=== PATIENT | male | born 1990 | race Caucasian/White ===

== ENCOUNTER 2017-02-04 23:26 | Inpatient (IN) | payer BC ==
[2017-02-04 23:45] VITALS: BMI 22.6
--- NOTE | 2017-02-04 23:52 | HP ---
COWS - Scale Resting Pulse: 0= [place] 80 or Below Sweatin= Chills/Flushing Restless Observation: 3= Extraneous Movement Pupil Size: 1= Pupils >than Normal Bone or Joint Aches: 2= Severe Diffuse Aches Runny Nose/ Eye Tearin= Runny Nose/Eyes GI Upset > 30mins: 3= Vomiting/Diarrhea Tremor Observation: 1= Tremor [place], Not Seen Yawning Observation: 1= 1-2x During Session Anxiety or Irritability: 1=Feels Anxious/Irritable Goose Flesh Skin: 3=Piloerection COWS Score: 18 CIWA Score - CIWA Score Nausea/Vomitin-Mild Nausea/No Vomiting Muscle Tremors: 2 Anxiety: 3 Agitation: 1-Slight > Activity Paroxysmal Sweats: 2 Orientation: 1-Uncertain about Date Tacttile Disturbances: 2-Mild Itch/Numbness/Burn Auditory Disturbances: 0-None Visual Disturbances: 1-Very Mild Sensitivity Headache: 1-Very Mild CIWA-Ar Total Score: 14 Admission ROS S - HPI Chief Complaint: WITHDRAWAL SYMPTOMS Allergies/Adverse Reactions: Allergies Allergy/AdvReac Type Severity Reaction Status Date / Time No Known Allergies Allergy Verified 02/04/17 23:48 History of Present Illness: 26 Y.O. 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 HE REPORTS HE COMPLETED DETOX AT [facility] AND WAS ADMINISTRATIVELY DISCHARGED FROM [facility]. THIS IS HIS FIRST ADMISSION TO [facility]. Exam Limitations: No Limitations - Ebola screening Have you traveled outside of the country in the last 21 days: No Have you had contact with anyone from an Ebola affected area: No Have you been sick,other than usual withdrawal symptoms: No Do you have a fever: No - Review of Systems Constitutional: Chills, Loss of Appetite, Night Sweats, Changes in sleep, Unintentional Wgt. Loss EENT: reports: Tearing, Nose Congestion Respiratory: reports: Cough, Shortness of Breath Cardiac: reports: No Symptoms Reported GI: reports: Constipated : reports: Other (HESISTANCY) Musculoskeletal: reports: Back Pain Neuro: reports: Tingling Endocrine: reports: No Symptoms Reported Hematology: reports: No Symptoms Reported Psychiatric: reports: Orientated x3, Depressed Other Systems: Reviewed and Negative Patient History - Patient Medical History Hx Anemia: No Hx Asthma: No Hx Chronic Obstructive Pulmonary Disease (COPD): No Hx Cancer: No Hx Cardiac Disorders: No Hx Congestive Heart Failure: No Hx Hypertension: No Hx Hypercholesterolemia: Yes Hx Pacemaker: No HX Cerebrovascular Accident: No Hx Seizures: No Hx Dementia: No Hx Diabetes: No Hx Gastrointestinal Disorders: No Hx Liver Disease: No Hx Genitourinary Disorders: No Hx Sexually Transmitted Disorders: No Hx Renal Disease (ESRD): No Hx Thyroid Disease: No Hx Human Immunodeficiency Virus (HIV): No Hx Hepatitis C: No Hx Depression: Yes Hx Suicide Attempt: No Hx Bipolar Disorder: No Hx Schizophrenia: No - Patient Surgical History Past Surgical History: Yes Other Surgical History: Tonsillectomy Anesthesia Reaction: Yes - PPD History Previous Implant?: Yes Documented Results: Negative w/o proof Implanted On Prior R Admission?: No PPD to be Administered?: Yes - Reproductive History Patient is a Female of Child Bearing Age (11 -55 yrs old): No - Smoking Cessation Smoking history: Current every day smoker Have you smoked in the past 12 months: Yes Aproximately how many cigarettes per day: 20 Hx Chewing Tobacco Use: Yes Initiated information on smoking cessation: Yes 'Breaking Loose' booklet given: 02/04/17 - Substance & Tx. History Hx Alcohol Use: No Hx Substance Use: Yes Substance Use Type: Heroin, Tranquilizers Hx Substance Use Treatment: Yes - Substances Abused Heroin Route: Inhalation Frequency: Daily Amount used: 15-20 BAG Age of first use: 16 Date of Last Use: 02/05/17 Alprazolam (Xanax) Route: Oral Frequency: Daily Amount used: 4MG Age of first use: 16 Date of Last Use: 02/05/17 Family Disease History - Family Disease History Family Disease History: Respiratory: Brother (OPIOID DEPENDENCE ), Other: Brother Admission Physical Exam [facility] - Vital Signs Vital Signs: Vital Signs - 24 hr 02/04/17 23:42 Temperature 96.0 F L Pulse Rate 76 Respiratory 18 Rate Blood Pressure 124/73 - Physical General Appearance: Yes: Irritable, Anxious HEENTM: Yes: Normal ENT Inspection, Normocephalic, Normal Voice Respiratory: Yes: Lungs Clear, Normal Breath Sounds, No Respiratory Distress, No Accessory Muscle Use Neck: Yes: No masses,lesions,Nodules, Trachea in good position Breast: Yes: Breast Exam Deferred Cardiology: Yes: Regular Rhythm, Regular Rate Abdominal: Yes: Flat, Soft Genitourinary: Yes: Other (HESITANCY) Back: Yes: Normal Inspection Musculoskeletal: Yes: Back pain Extremities: Yes: Normal Inspection, Normal Range of Motion, Non-Tender Neurological: Yes: Fully Oriented, Alert, Normal Mood/Affect, Normal Response Integumentary: Yes: Normal Color, Dry, Warm Lymphatic: Yes: Within Normal Limits - Diagnostic (1) Nicotine dependence Current Visit: Yes Status: Chronic (2) Opioid dependence with withdrawal Current Visit: Yes Status: Chronic (3) Sedative, hypnotic or anxiolytic dependence with withdrawal, uncomplicated Current Visit: Yes Status: Chronic Cleared for Admission S - Detox or Rehab [facility] Level of Care: Medically Managed Detox Regimen/Protocol: Methadone/Valium S Breath Alcohol Content Breath Alcohol Content: 0 Urine Drug Screen - Test Device Lot Number: [id number] Expiration Date: 09/03/18 - Control Is Test Valid: Yes - Results Drug Screen Negative: No Urine Drug Screen Results: THC-Marijuana, OPI-Opiates, BAR-Barbiturates, BZO- Benzodiazepines
[2017-02-05] MEDS ORDERED: MENTHOL/PHENOL 1 EACH UD MM PRN (02:16)
[2017-02-05] MEDS ORDERED: MAG HYDROX/AL HYDROX/SIMETH 30 ML UNIT-DOSE CUP PO PRN (02:16)
[2017-02-05] MEDS ORDERED: P-EPHED 60MG/TRIPROLIDI 2.5MG TABLET PO PRN (02:16)
[2017-02-05] MEDS ORDERED: diazePAM 5 MG TABLET PO ONE (02:16)
[2017-02-05] MEDS ORDERED: ACETAMINOPHEN 325 MG TABLET (FP) PO PRN (02:16)
[2017-02-05] MEDS ORDERED: MAGNESIUM HYDROX 2400MG/30ML ORAL SUSPENSION 30 ML CUP PO PRN (02:16)
[2017-02-05] MEDS ORDERED: NICOTINE POLACRILEX 4 MG GUM BC PRN (02:16)
[2017-02-05] MEDS ORDERED: MAGNESIUM CITRATE 300 ML BOTTLE PO PRN (02:16)
[2017-02-05] MEDS ORDERED: IBUPROFEN 400 MG TABLET (FP) PO PRN (02:16)
[2017-02-05] MEDS ORDERED: hydrOXYzine PAMOATE 50 MG CAPSULE (FP) PO PRN (02:16)
[2017-02-05] MEDS ORDERED: METHADONE HCL 10 MG TABLET (FOR DETOX USE ONLY) PO ONE ×3 (02:16→23:00)
[2017-02-05] MEDS ORDERED: guaiFENesin/D-METHORPHAN HB 10 ML UNIT-DOSE CUPS PO PRN (02:16)
[2017-02-05] MEDS: diazePAM 5 MG TABLET PO SCH ×3 (06:03→22:36)
--- NOTE | 2017-02-05 10:15 | CONSULT ---
[facility] Psychiatric Consult - Data Date of interview: 02/05/17 Admission source: [facility] Identifying data: This is 26 years old male with no psychiatric hospitalization history intoxicated with: Opioids, Xanax and Nicotine Substance Abuse History: moking Cessation. Smoking history: Current every day smoker. Have you smoked in the past 12 months: Yes. Aproximately how many cigarettes per day: 20. Hx Chewing Tobacco Use: Yes. Initiated information on smoking cessation: Yes. 'Breaking Loose' booklet given: 02/04/17. - Substance & Tx. History. Hx Alcohol Use: No. Hx Substance Use: Yes. Substance Use Type : Heroin, Tranquilizers. Hx Substance Use Treatment: Yes. - Substances Abused. Heroin. Route: Inhalation. Frequency: Daily. Amount used: 15-20 BAG. Age of first use: 16. Date of Last Use: 02/05/17. Alprazolam (Xanax) . Route: Oral. Frequency: Daily. Amount used: 4MG. Age of first use: 16. Date of Last Use: 02/05/17 Medical History: Denies any significant medical issues, Psychiatric History: Patient reports unclear psychiatric admission on ore then 5 years ago, reports no medications taking prior to admission Physical/Sexual Abuse/Trauma History: Denies Additional Comment: Observation. Detox Unit Care Protocol Mental Status Exam - Mental Status Exam Alert and Oriented to: Person Cognitive Function: Fair Patient Appearance: Unkempt Mood: Sad Affect: Flat Patient Behavior: Sedated Speech Pattern: Delayed Voice Loudness: Mildly Soft/Quiet Thought Process: Circumstantial Thought Disorder: Being Controlled Hallucinations: Denies Suicidal Ideation: Denies Homicidal Ideation: Denies Insight/Judgement: Fair Appetite: Fair Muscle strength/Tone: Mild Hypotonicity Gait/Station: Shuffling Additional Comments: Observation. Detox Unit Care Protocol Psychiatric Findings - Problem List ([place] 1, 2,3) (1) Nicotine dependence Current Visit: Yes Status: Chronic (2) Opioid dependence with withdrawal Current Visit: Yes Status: Chronic (3) Sedative, hypnotic or anxiolytic dependence with withdrawal, uncomplicated Current Visit: Yes Status: Chronic - Initial Treatment Plan Initial Treatment Plan: Observation. Detox Unit Care Protocol
[2017-02-05 10:16] LABS: MCH 34.7 pg (25.7-33.7); MEAN CELL VOLUME 100.2 fl (80-96); MEAN PLT VOLUME 8.1 fl (7.5-11.1); PLATELET COUNT 149 K/MM3 (134-434); RDW 12.8 % (11.9-15.9); WHITE BLOOD COUNT 6.1 K/mm3 (4.0-10.0)
[2017-02-05 10:34] LABS: MCHC 100.2 g/dl (32.0-35.9)
[2017-02-05] MEDS: NICOTINE 21 MG/24 HOURS TOPICAL PATCH TD SCH (10:47)
[2017-02-05] MEDS: PRENATAL VITAMINS W/ FOLIC ACID TABLET (FP) PO SCH (10:47)
[2017-02-05] MEDS: diazePAM 5 MG TABLET PO PRN ×2 (10:48→20:18)
[2017-02-05 10:53] LABS: ALBUMIN 3.6 g/dl (3.4-5.0); ALK PHOS 54 U/L (45-117); ANION GAP 8 (8-16); BILIRUBIN,TOTAL 0.3 mg/dL (0.2-1.0); CALCIUM 8.3 mg/dL (8.5-10.1); CO2 32 mmol/L (21-32); COCKROFT - GAULT 139.66; CREATININE 0.9 mg/dL (0.7-1.3); GLUCOSE,RANDOM 97 mg/dL (74-106); SGOT/AST 14 U/L (15-37); SGPT/ALT 22 U/L (12-78); TOT PROT 6.1 g/dl (6.4-8.2)
--- NOTE | 2017-02-05 11:00 | PN ---
[facility] Progress Note Note: PT WAS ADMITTED EARLIER TODAY. ALERT O X 3. INTERMITTENT SLEEP AND BENADRYL NOT EFFECTIVE. STATES TAKES TRAZODONE FOR SLEEP. TO F/U WITH PSYCH CONSULT TODAY. Vital Signs Temperature 96.0 F L 02/05/17 09:34 Pulse Rate 70 02/05/17 09:34 Respiratory Rate 18 02/05/17 09:34 Blood Pressure 111/67 02/05/17 09:34 O2 Sat by Pulse Oximetry (%) Laboratory Last Values WBC 6.1 K/mm3 (4.0-10.0) 02/05/17 07:00 RBC 3.64 M/mm3 (4.00-5.60) L 02/05/17 07:00 Hgb 12.6 GM/dL (11.7-16.9) 02/05/17 07:00 Hct 36.4 % (35.4-49) 02/05/17 07:00 MCV 100.2 fl (80-96) H 02/05/17 07:00 MCHC 100.2 g/dl (32.0-35.9) H 02/05/17 07:00 RDW 12.8 % (11.9-15.9) 02/05/17 07:00 Plt Count 149 K/MM3 (134-434) 02/05/17 07:00 MPV 8.1 fl (7.5-11.1) 02/05/17 07:00 CONTINUE DETOX
--- NOTE | 2017-02-05 11:06 | PN ---
[facility] CIWA - CIWA Score Nausea/Vomitin-No Nausea/No Vomiting Muscle Tremors: 4-Moderate,w/Arms Extend Anxiety: 4-Mod. Anxious/Guarded Agitation: 4-Moderately Restless Paroxysmal Sweats: 1-Minimal Palms Moist Orientation: 0-Oriented Tacttile Disturbances: 3-Moderate Itch/Numb/Burn Auditory Disturbances: 0-None Visual Disturbances: 0-None Headache: 0-None Present CIWA-Ar Total Score: 16 [facility] COWS - Scale Resting Pulse: 0= [place] 80 or Below Sweatin= Chills/Flushing Restless Observation: 3= Extraneous Movement Pupil Size: 2= Moderately Dilated Bone or Joint Aches: 4=Acute Joint/Muscle Pain Runny Nose/ Eye Tearin= Nasal Congestion GI Upset > 30mins: 1= Stomach Cramp Tremor Observation of Outstretched Hands: 2= Slight Tremor Visible Yawning Observation: 2= >3x During Session Anxiety or Irritability: 2=Irritable/Anxious Goose Flesh Skin: 0=Smooth Skin COWS Score: 18 S Progress Note (SOAP) Subjective: ANXIETY,SWEATS,INTERMITTENT SLEEP-BENADRYL NOT EFFECTIVE. STATES TAKES TRAZODONE FOR SLEEP. TO FOLLOW UP WITH PSYCH CONSULT TODAY. Objective: 02/05/17 11:05 Vital Signs Temperature 96.0 F L 02/05/17 09:34 Pulse Rate 70 02/05/17 09:34 Respiratory Rate 18 02/05/17 09:34 Blood Pressure 111/67 02/05/17 09:34 O2 Sat by Pulse Oximetry (%) Laboratory Last Values WBC 6.1 K/mm3 (4.0-10.0) 02/05/17 07:00 RBC 3.64 M/mm3 (4.00-5.60) L 02/05/17 07:00 Hgb 12.6 GM/dL (11.7-16.9) 02/05/17 07:00 Hct 36.4 % (35.4-49) 02/05/17 07:00 MCV 100.2 fl (80-96) H 02/05/17 07:00 MCHC 100.2 g/dl (32.0-35.9) H 02/05/17 07:00 RDW 12.8 % (11.9-15.9) 02/05/17 07:00 Plt Count 149 K/MM3 (134-434) 02/05/17 07:00 MPV 8.1 fl (7.5-11.1) 02/05/17 07:00 OTHER LABS PENDING. Assessment: 02/05/17 11:05 WITHDRAWAL SX Plan: CONTINUE DETOX
[2017-02-05 12:32] LABS: HIV 1 & 2 AB NEGATIVE; HIV 1 AGp24 NEGATIVE
--- NOTE | 2017-02-05 17:36 | EKG ---
Test Reason : Blood Pressure : / mmHG Vent. Rate : 068 BPM Atrial Rate : 068 BPM P-R Int : 150 ms QRS Dur : 094 ms QT Int : 380 ms P-R-T Axes : 054 066 049 degrees QTc Int : 404 ms NORMAL SINUS RHYTHM POSSIBLE LEFT ATRIAL ENLARGEMENT BORDERLINE ECG NO PREVIOUS ECGS AVAILABLE Confirmed by NATHALY HELTON, GRACIELA ([id number]) on 02/05/2017 5:35:37 PM Referred By: Confirmed By:GRACIELA ANDERSEN MD
[2017-02-05] MEDS: THIAMINE HCL 100 MG TABLET (FP) PO SCH (22:36)
[2017-02-05] MEDS: diphenhydrAMINE HCL 50 MG CAPSULE PO PRN (22:36)
[2017-02-06] MEDS: diazePAM 5 MG TABLET PO SCH ×3 (06:16→22:22)
[2017-02-06] MEDS ORDERED: METHADONE HCL 10 MG TABLET (FOR DETOX USE ONLY) PO SCH (10:00)
--- NOTE | 2017-02-06 10:05 | PN ---
[facility] Progress Note Note: Psychiatry Attending's note : Asked to enter orders for trazodone. Complaint : insomnia. Past history of treatment with trazodone. Mr Diehl was already seen by Dr Disla on 02/05/17. Consult note is appreciated. Met briefly with the patient. He confirmed history of favorable response to trazodone. No previous report of adverse effects.Chronic insomnia reported. Patient is eager to resume the medication. Intervention : Trazodone 50 mg po hs.Ordered. Patient made aware of potential for priapism. He agrees with this careplan.
[2017-02-06] MEDS: diazePAM 5 MG TABLET PO PRN (10:23)
[2017-02-06] MEDS: PRENATAL VITAMINS W/ FOLIC ACID TABLET (FP) PO SCH (10:23)
[2017-02-06] MEDS: NICOTINE 21 MG/24 HOURS TOPICAL PATCH TD SCH (10:24)
--- NOTE | 2017-02-06 13:42 | PN ---
[facility] CIWA - CIWA Score Nausea/Vomitin-Mild Nausea/No Vomiting Muscle Tremors: 3 Anxiety: 4-Mod. Anxious/Guarded Agitation: 4-Moderately Restless Paroxysmal Sweats: 3 Orientation: 0-Oriented Tacttile Disturbances: 0-None Auditory Disturbances: 0-None Visual Disturbances: 0-None Headache: 0-None Present CIWA-Ar Total Score: 15 S COWS - Scale Resting Pulse: 0= [place] 80 or Below Sweatin=Flushed/Facial Moisture Restless Observation: 1= Difficult to Sit Still Pupil Size: 0= Normal to Room Light Bone or Joint Aches: 1= Mild Discomfort Runny Nose/ Eye Tearin= Runny Nose/Eyes GI Upset > 30mins: 2= Nausea/Diarrhea Tremor Observation of Outstretched Hands: 2= Slight Tremor Visible Yawning Observation: 1= 1-2x During Session Anxiety or Irritability: 2=Irritable/Anxious Goose Flesh Skin: 0=Smooth Skin COWS Score: 13 S Progress Note (SOAP) Subjective: Anxiety,tremors,sweating,interrupted sleep,restless,muscle aches Objective: 02/06/17 13:41 Vital Signs - 8 hr 02/06/17 02/06/17 06:39 10:41 Temperature 95.8 F L 97.0 F L Pulse Rate 66 68 Respiratory 18 16 Rate Blood Pressure 108/70 115/70 Laboratory Tests 02/05/17 02/05/17 02/05/17 07:00 07:00 07:00 WBC 6.1 RBC 3.64 L Hgb 12.6 Hct 36.4 MCV 100.2 H MCHC 100.2 H RDW 12.8 Plt Count 149 MPV 8.1 Sodium 141 Potassium 3.6 Chloride 101 Carbon Dioxide 32 Anion Gap 8 BUN 14 Creatinine 0.9 Creat Clearance w eGFR > 60 Random Glucose 97 Calcium 8.3 L Total Bilirubin 0.3 AST 14 L ALT 22 Alkaline Phosphatase 54 Total Protein 6.1 L Albumin 3.6 RPR Titer HIV 1&2 Antibody Screen Negative HIV P24 Antigen Negative 02/05/17 07:00 WBC RBC Hgb Hct MCV MCHC RDW Plt Count MPV Sodium Potassium Chloride Carbon Dioxide Anion Gap BUN Creatinine Creat Clearance w eGFR Random Glucose Calcium Total Bilirubin AST ALT Alkaline Phosphatase Total Protein Albumin RPR Titer Nonreactive HIV 1&2 Antibody Screen HIV P24 Antigen labs noted Assessment: 02/06/17 13:41 Withdrawal sx. Plan: Continue detox
[2017-02-06] MEDS: THIAMINE HCL 100 MG TABLET (FP) PO SCH (22:22)
[2017-02-06] MEDS: traZODone HCL 50 MG TABLET (FP) PO SCH (22:22)
[2017-02-07] MEDS: diazePAM 5 MG TABLET PO PRN ×2 (06:12→20:57)
[2017-02-07] MEDS: NICOTINE 21 MG/24 HOURS TOPICAL PATCH TD SCH (10:18)
[2017-02-07] MEDS: METHADONE HCL 5 MG TABLET (FOR DETOX USE ONLY) PO SCH (10:18)
[2017-02-07] MEDS: PRENATAL VITAMINS W/ FOLIC ACID TABLET (FP) PO SCH (10:18)
[2017-02-07] MEDS: diazePAM 5 MG TABLET PO SCH ×2 (10:18→22:24)
--- NOTE | 2017-02-07 17:38 | PN ---
S Progress Note (SOAP) Subjective: Tremors, Interrupted sleep, Sweating, Back Ache. Objective: PT. A & O X 3. 02/07/17 17:36 Vital Signs Temperature 96.4 F L 02/07/17 15:33 Pulse Rate 84 02/07/17 15:33 Respiratory Rate 20 02/07/17 15:33 Blood Pressure 106/69 02/07/17 15:33 O2 Sat by Pulse Oximetry (%) Laboratory Last Values WBC 6.1 K/mm3 (4.0-10.0) 02/05/17 07:00 RBC 3.64 M/mm3 (4.00-5.60) L 02/05/17 07:00 Hgb 12.6 GM/dL (11.7-16.9) 02/05/17 07:00 Hct 36.4 % (35.4-49) 02/05/17 07:00 MCV 100.2 fl (80-96) H 02/05/17 07:00 MCHC 100.2 g/dl (32.0-35.9) H 02/05/17 07:00 RDW 12.8 % (11.9-15.9) 02/05/17 07:00 Plt Count 149 K/MM3 (134-434) 02/05/17 07:00 MPV 8.1 fl (7.5-11.1) 02/05/17 07:00 Sodium 141 mmol/L (136-145) 02/05/17 07:00 Potassium 3.6 mmol/L (3.5-5.1) 02/05/17 07:00 Chloride 101 mmol/L (98-107) 02/05/17 07:00 Carbon Dioxide 32 mmol/L (21-32) 02/05/17 07:00 Anion Gap 8 (8-16) 02/05/17 07:00 BUN 14 mg/dL (7-18) 02/05/17 07:00 Creatinine 0.9 mg/dL (0.7-1.3) 02/05/17 07:00 Creat Clearance w eGFR > 60 (>60) 02/05/17 07:00 Random Glucose 97 mg/dL (74-106) 02/05/17 07:00 Calcium 8.3 mg/dL (8.5-10.1) L 02/05/17 07:00 Total Bilirubin 0.3 mg/dL (0.2-1.0) 02/05/17 07:00 AST 14 U/L (15-37) L 02/05/17 07:00 ALT 22 U/L (12-78) 02/05/17 07:00 Alkaline Phosphatase 54 U/L (45-117) 02/05/17 07:00 Total Protein 6.1 g/dl (6.4-8.2) L 02/05/17 07:00 Albumin 3.6 g/dl (3.4-5.0) 02/05/17 07:00 RPR Titer Nonreactive (NONREACTIVE) 02/05/17 07:00 Hepatitis C Antibody <0.1 s/co ratio (0.0-0.9) 02/05/17 07:00 HIV 1&2 Antibody Screen Negative 02/05/17 07:00 HIV P24 Antigen Negative 02/05/17 07:00 LABS NOTED. Assessment: 02/07/17 17:38 WITHDRAWAL SYMPTOMS. Plan: CONTINUE DETOX. ADVISED PATIENT TO FOLLOW-UP WITH [facility] / REHAB MEDICAL PROVIDER AFTER DISCHARGE FROM DETOX FOR GENERAL MEDICAL ASSESSMENT AND FOR ABNORMAL ADMISSION LAB VALUES.
[2017-02-07] MEDS: traZODone HCL 50 MG TABLET (FP) PO SCH (22:24)
[2017-02-07] MEDS: THIAMINE HCL 100 MG TABLET (FP) PO SCH (22:24)
[2017-02-08] MEDS: METHADONE HCL 5 MG TABLET (FOR DETOX USE ONLY) PO SCH (10:11)
[2017-02-08] MEDS: PRENATAL VITAMINS W/ FOLIC ACID TABLET (FP) PO SCH (10:11)
[2017-02-08] MEDS: NICOTINE 21 MG/24 HOURS TOPICAL PATCH TD SCH (10:11)
[2017-02-08] MEDS: diazePAM 5 MG TABLET PO SCH ×2 (10:11→22:19)
[2017-02-08 10:24] LABS: URINE APPEARANCE CLEAR; URINE BILIRUBIN NEGATIVE (NEGATIVE); URINE BLOOD NEGATIVE (NEGATIVE); URINE COLOR LTYELLOW; URINE GLUCOSE (UA) NEGATIVE (NEGATIVE); URINE KETONE NEGATIVE (NEGATIVE); URINE LEUK ESTERASE NEGATIVE (NEGATIVE); URINE NITRITE NEGATIVE (NEGATIVE); URINE PROTEIN NEGATIVE (NEGATIVE); URINE UROBILINOGEN NEGATIVE E.U./dl (0.2-1.0)
--- NOTE | 2017-02-08 15:26 | PN ---
[facility] Progress Note (SOAP) Subjective: Sweating, fatigue, interrupted sleep, anxious Objective: 02/08/17 15:24 Last Vital Signs Temp Pulse Resp BP Pulse Ox 96.8 F L 84 18 98/63 02/08/17 13:40 02/08/17 13:40 02/08/17 13:40 02/08/17 13:40 Laboratory Tests 02/05/17 02/05/17 02/05/17 07:00 07:00 07:00 WBC 6.1 RBC 3.64 L Hgb 12.6 Hct 36.4 MCV 100.2 H MCHC 100.2 H RDW 12.8 Plt Count 149 MPV 8.1 Sodium Potassium Chloride Carbon Dioxide Anion Gap BUN Creatinine Creat Clearance w eGFR Random Glucose Calcium Total Bilirubin AST ALT Alkaline Phosphatase Total Protein Albumin Urine Color Urine Appearance Urine pH Urine Protein Urine Glucose (UA) Urine Ketones Urine Blood Urine Nitrite Urine Bilirubin Urine Urobilinogen Ur Leukocyte Esterase RPR Titer Hepatitis C Antibody <0.1 HIV 1&2 Antibody Screen Negative HIV P24 Antigen Negative 02/05/17 02/05/17 02/07/17 07:00 07:00 08:40 WBC RBC Hgb Hct MCV MCHC RDW Plt Count MPV Sodium 141 Potassium 3.6 Chloride 101 Carbon Dioxide 32 Anion Gap 8 BUN 14 Creatinine 0.9 Creat Clearance w eGFR > 60 Random Glucose 97 Calcium 8.3 L Total Bilirubin 0.3 AST 14 L ALT 22 Alkaline Phosphatase 54 Total Protein 6.1 L Albumin 3.6 Urine Color Ltyellow Urine Appearance Clear Urine pH 5.0 Urine Protein Negative Urine Glucose (UA) Negative Urine Ketones Negative Urine Blood Negative Urine Nitrite Negative Urine Bilirubin Negative Urine Urobilinogen Negative Ur Leukocyte Esterase Negative RPR Titer Nonreactive Hepatitis C Antibody HIV 1&2 Antibody Screen HIV P24 Antigen Labs noted Assessment: 02/08/17 15:25 Withdrawal symptoms Plan: Continue detox
[2017-02-08] MEDS: traZODone HCL 50 MG TABLET (FP) PO SCH (22:19)
[2017-02-08] MEDS: THIAMINE HCL 100 MG TABLET (FP) PO SCH (22:19)
[2017-02-09] MEDS ORDERED: METHADONE HCL 10 MG TABLET (FOR DETOX USE ONLY) PO SCH (10:00)
[2017-02-09] MEDS ORDERED: diazePAM 5 MG TABLET PO SCH (10:00)
[2017-02-09] MEDS: PRENATAL VITAMINS W/ FOLIC ACID TABLET (FP) PO SCH (10:19)
[2017-02-09] MEDS: NICOTINE 21 MG/24 HOURS TOPICAL PATCH TD SCH (10:20)
--- NOTE | 2017-02-09 15:09 | PN ---
[facility] Progress Note (SOAP) Subjective: Sweating,interrupted sleep,restless Objective: 02/09/17 15:09 Vital Signs - 8 hr 02/09/17 02/09/17 09:33 09:34 Temperature 97.2 F L 97.2 F L Pulse Rate 73 73 Respiratory 18 18 Rate Blood Pressure 106/72 106/72 Laboratory Last Values WBC 6.1 K/mm3 (4.0-10.0) 02/05/17 07:00 RBC 3.64 M/mm3 (4.00-5.60) L 02/05/17 07:00 Hgb 12.6 GM/dL (11.7-16.9) 02/05/17 07:00 Hct 36.4 % (35.4-49) 02/05/17 07:00 MCV 100.2 fl (80-96) H 02/05/17 07:00 MCHC 100.2 g/dl (32.0-35.9) H 02/05/17 07:00 RDW 12.8 % (11.9-15.9) 02/05/17 07:00 Plt Count 149 K/MM3 (134-434) 02/05/17 07:00 MPV 8.1 fl (7.5-11.1) 02/05/17 07:00 Sodium 141 mmol/L (136-145) 02/05/17 07:00 Potassium 3.6 mmol/L (3.5-5.1) 02/05/17 07:00 Chloride 101 mmol/L (98-107) 02/05/17 07:00 Carbon Dioxide 32 mmol/L (21-32) 02/05/17 07:00 Anion Gap 8 (8-16) 02/05/17 07:00 BUN 14 mg/dL (7-18) 02/05/17 07:00 Creatinine 0.9 mg/dL (0.7-1.3) 02/05/17 07:00 Creat Clearance w eGFR > 60 (>60) 02/05/17 07:00 Random Glucose 97 mg/dL (74-106) 02/05/17 07:00 Calcium 8.3 mg/dL (8.5-10.1) L 02/05/17 07:00 Total Bilirubin 0.3 mg/dL (0.2-1.0) 02/05/17 07:00 AST 14 U/L (15-37) L 02/05/17 07:00 ALT 22 U/L (12-78) 02/05/17 07:00 Alkaline Phosphatase 54 U/L (45-117) 02/05/17 07:00 Total Protein 6.1 g/dl (6.4-8.2) L 02/05/17 07:00 Albumin 3.6 g/dl (3.4-5.0) 02/05/17 07:00 Urine Color Ltyellow 02/07/17 08:40 Urine Appearance Clear 02/07/17 08:40 Urine pH 5.0 (5.0-8.0) 02/07/17 08:40 Ur Specific [place] 1.015 (1.005-1.025) 02/07/17 08:40 Urine Protein Negative (NEGATIVE) 02/07/17 08:40 Urine Glucose (UA) Negative (NEGATIVE) 02/07/17 08:40 Urine Ketones Negative (NEGATIVE) 02/07/17 08:40 Urine Blood Negative (NEGATIVE) 02/07/17 08:40 Urine Nitrite Negative (NEGATIVE) 02/07/17 08:40 Urine Bilirubin Negative (NEGATIVE) 02/07/17 08:40 Urine Urobilinogen Negative E.U./dl (0.2-1.0) 02/07/17 08:40 Ur Leukocyte Esterase Negative (NEGATIVE) 02/07/17 08:40 RPR Titer Nonreactive (NONREACTIVE) 02/05/17 07:00 Hepatitis C Antibody <0.1 s/co ratio (0.0-0.9) 02/05/17 07:00 HIV 1&2 Antibody Screen Negative 02/05/17 07:00 HIV P24 Antigen Negative 02/05/17 07:00 labs noted Assessment: 02/09/17 15:09 Withdrawal sx. Plan: Continue detox
[2017-02-09] MEDS: traZODone HCL 50 MG TABLET (FP) PO SCH (22:09)
[2017-02-09] MEDS: THIAMINE HCL 100 MG TABLET (FP) PO SCH (22:09)
[2017-02-09] MEDS: LOPERAMIDE HCL 2 MG CAPSULE PO PRN (22:46)
[2017-02-10] MEDS: diphenhydrAMINE HCL 50 MG CAPSULE PO PRN (00:42)
[2017-02-10] MEDS ORDERED: METHADONE HCL 5 MG TABLET (FOR DETOX USE ONLY) PO SCH (06:00)
[2017-02-10 06:47] VITALS: PULSE 90; TEMP 95.9
[2017-02-10] MEDS: LOPERAMIDE HCL 2 MG CAPSULE PO PRN (09:11)
--- NOTE | 2017-02-10 10:04 | DS ---
[facility] Detox Discharge Summary Admission Date: 02/04/17 Discharge Date: 02/10/17 - History Present History: Opioid Dependence, Sedative Dependence Additional Comments: DETOX COMPLETED. ALERT O X 3. NAD. Pertinent Past History: ???HYPERCHOLESTEROLEMIA - Physical Exam Results Vital Signs: Vital Signs Temperature 95.9 F L 02/10/17 06:46 Pulse Rate 90 02/10/17 06:46 Respiratory Rate 18 02/10/17 06:46 Blood Pressure 107/60 02/10/17 06:46 O2 Sat by Pulse Oximetry (%) Pertinent Admission Physical Exam Findings: WITHDRAWAL SX - Treatment Hospital Course: Detox Protocol Followed, Detoxed Safely, Responded well, Discharged Condition Good, Rehab Referral Accepted Patient has Accepted a Rehab Referral to: [facility] - Medication Discharge Medications: Ambulatory Orders Trazodone HCl [Desyrel -] 50 mg PO HS 02/06/17 - Diagnosis (1) Nicotine dependence Status: Acute Qualifiers: Nicotine product type: cigarettes Substance use status: in withdrawal Qualified Code(s): F17.213 - Nicotine dependence, cigarettes, with withdrawal (2) Opioid dependence with withdrawal Status: Acute (3) Sedative, hypnotic or anxiolytic dependence with withdrawal, uncomplicated Status: Acute - AMA Did Patient Leave Against Medical Advice: No
[2017-02-10 10:17] VITALS: BP 106/71
== END 2017-02-10 11:10 | disposition home or self-care (01) | DRG 773 ==
LOC: YASAS 23:26 → Y3N 23:44
PROVIDERS: ADMIT Internal Medicine; ATTEND Internal Medicine
PROC: HZ2ZZZZ Detoxification Services for Substance Abuse Treatment (ICD-10-PCS; principal; 2017-02-10)
DX: F11.23 Opioid dependence with withdrawal (principal); F13.230 Sedative, hypnotic or anxiolytic dependence with withdrawal, uncomplicated; F17.213 Nicotine dependence, cigarettes, with withdrawal; F32.9 Major depressive disorder, single episode, unspecified; E78.00 Pure hypercholesterolemia, unspecified
CPT/HCPCS: 36415; 80053; 81003; 85027; 86593; 87389; 93005; 93010